=== PATIENT | male | born 1965 | race Caucasian/White ===

== ENCOUNTER → 2017-03-10 | Outpatient (CLI) | payer BC ==
[~2017-03-10] MED LIST: LEVAQUIN500 MG PO; MAGNESIUM OXID400 MG PO; METFORMIN HCL500 MG PO; MINOCYCLINE HCL50 MG PO; MULTI-VITAMIN1 EACH PEG; ULTRAM50 MG PO; VITAMIN D400 UNIT PO
[2017-03-10 12:03] LABS: BASOPHILS % 0.4 % (0.0-1.0); EOSINOPHILS # (AUTO) 0.1 (0.0-0.4); EOSINOPHILS % 1.2 % (0.0-6.0); HEMATOCRIT 38.4 % (38.2-49.6); HEMOGLOBIN 14.3 g/dL (14.0-18.0); LYMPHOCYTES # (AUTO) 1.5 (1.0-3.2); MEAN CORPUSCULAR HEMOGLOBIN 37.1 pg (28-32); MEAN CORPUSCULAR HGB CONC 37.2 g/dL (31-35); MEAN CORPUSCULAR VOLUME 99.7 fL (81-99); MONOCYTES # (AUTO) 0.4 (0.2-0.8); MONOCYTES % 5.3 % (4.4-11.3); NEUTROPHILS % 73.9 % (38.7-80.0); PLATELET COUNT 61 x10e3/uL (140-360); RED BLOOD COUNT 3.85 x10e6/uL (4.3-5.7); RED CELL DISTRIBUTION WIDTH 12.7 % (11.7-14.4)
--- NOTE | 2017-03-10 12:23 | Diagnostic Imaging Report ---
PROCEDURE:CHEST 2 VIEWS TECHNIQUE:PA and lateral chest INDICATION:Cough; congestion COMPARISON:None. FINDINGS: Lungs are clear and symmetrically inflated. No pleural effusions. Normal heart size, mediastinal contour and pulmonary vasculature. Intact skeleton. Upper abdominal embolization coils. Indwelling TIPS CONCLUSION: No acute abnormality. Dictated by: Harinder Jason M.D. on 03/10/2017 at 12:31 Electronically approved by: Harinder Jason M.D. on 03/10/2017 at 12:31
== END ==
LOC: RAD 11:32
PROVIDERS: ATTEND Family Medicine
DX: E11.65 Type 2 diabetes mellitus with hyperglycemia (principal); R05 Cough; E78.2 Mixed hyperlipidemia
CPT/HCPCS: 36415; 71020; 85025

== ENCOUNTER → 2018-12-23 | Outpatient (CLI) | payer BC ==
[2018-12-23 10:05] LABS: BASOPHILS % 0.6 % (0.0-1.0); EOSINOPHILS # (AUTO) 0.1 (0.0-0.4); EOSINOPHILS % 2.1 % (0.0-6.0); HEMATOCRIT 37.3 % (38.2-49.6); HEMOGLOBIN 13.4 g/dL (14.0-18.0); LYMPHOCYTES # (AUTO) 1.3 (1.0-3.2); LYMPHOCYTES % 24.9 % (18.0-39.1); MEAN CORPUSCULAR HEMOGLOBIN 35.3 pg (28-32); MEAN CORPUSCULAR HGB CONC 35.9 g/dL (31-35); MEAN CORPUSCULAR VOLUME 98.2 fL (81-99); MONOCYTES # (AUTO) 0.5 (0.2-0.8); MONOCYTES % 8.7 % (4.4-11.3); NEUTROPHILS # (AUTO) 3.3 (2.1-6.9); NEUTROPHILS % 62.4 % (38.7-80.0); PLATELET COUNT 65 x10e3/uL (140-360); RED CELL DISTRIBUTION WIDTH 12.5 % (11.7-14.4)
[2018-12-23 10:25] LABS: INR 1.08; PROTHROMBIN TIME 14.5 seconds (11.9-14.5)
[2018-12-23 10:35] LABS: ALANINE AMINOTRANSFERASE 20 IU/L (0-55); ALBUMIN 3.5 g/dL (3.5-5.0); ALKALINE PHOSPHATASE 65 IU/L (40-150); ANION GAP 11.3 mmol/L (8-16); BILIRUBIN,DIRECT 0.7 mg/dL (0.0-0.5); BLOOD UREA NITROGEN 9 mg/dL (7-26); BUN/CREATININE RATIO 13 (6-25); CALCIUM 9.7 mg/dL (8.4-10.2); CARBON DIOXIDE 28 mmol/L (22-29); CHLORIDE 106 mmol/L (98-107); CREATININE, SERUM 0.71 mg/dL (0.72-1.25); EST GLOMERULAR FILTRATION RATE > 60 ML/MIN (60-); GLUCOSE 142 mg/dL (74-118); POTASSIUM 4.3 mmol/L (3.5-5.1); SODIUM 141 mmol/L (136-145)
--- NOTE | 2018-12-23 10:47 | Diagnostic Imaging Report ---
EXAM: US ABDOMEN COMPLETE DATE: 12/23/2018 8:51 AM INDICATION: Liver cirrhosis COMPARISON: None TECHNIQUE: Transverse and longitudinal erickson scale and color doppler sonographic images of the upper abdomen were obtained. FINDINGS: There is no evidence of fluid or masses seen in the area of clinical concern in the right lower quadrant. LIVER 12.7 cm in the right midclavicular line. Normal echogenicity of the liver with mildly nodular surface contour. SPLEEN 13.4 cm in maximum diameter. Normal echogenicity, no masses. GALLBLADDER No gallbladder wall thickening, distension, stone, or pericholecystic fluid. NEgative reported sonographic Lindo's sign. Gallbladder wall measures 2 mm BILE DUCTS No intra nor extra-hepatic biliary dilation. Common bile duct measures 4 mm PANCREAS: Visualized portions are normal. RIGHT KIDNEY: 12.5 cm Echogenicity: Normal Collecting System: No hydronephrosis Stones: None Cyst/Mass: None LEFT KIDNEY: 14.8 cm Echogenicity: Normal Collecting System: No hydronephrosis Stones: None Cyst/Mass: None VESSELS: Aorta: Visualized portions are within normal size limits Inferior Vena Cava: Visualized portions are normal Main Portal Vein: 0.8 cm, normal size with hepatopetal flow. FREE FLUID: None IMPRESSION: Mildly nodular liver surface contour can be seen in the setting of cirrhosis. Signed by: Baudilio Pagan MD on 12/23/2018 10:44 AM
== END ==
LOC: US 08:45
PROVIDERS: ATTEND Internal Medicine Hepatology
DX: K74.69 Other cirrhosis of liver (principal)
CPT/HCPCS: 36415; 76700; 80048; 80076; 82105; 85025; 85610

== ENCOUNTER 2021-11-04 14:00 | Emergency (ER) | payer BC, OTHER ==
[~2021-11-04] VITALS: Ht 185.4 cm; Wt 115.7 kg
[2021-11-04 14:51] LABS: BASOPHILS % 0.5 % (0.0-1.0); EOSINOPHILS # (AUTO) 0.1 (0.0-0.4); EOSINOPHILS % 2.2 % (0.0-6.0); HEMATOCRIT 35.8 % (38.2-49.6); HEMOGLOBIN 12.8 g/dL (14.0-18.0); LYMPHOCYTES # (AUTO) 1.1 (1.0-3.2); LYMPHOCYTES % 26.5 % (18.0-39.1); MEAN CORPUSCULAR HEMOGLOBIN 34.7 pg (28-32); MEAN CORPUSCULAR HGB CONC 35.8 g/dL (31-35); MONOCYTES # (AUTO) 0.3 (0.2-0.8); MONOCYTES % 7.9 % (4.4-11.3); NEUTROPHILS # (AUTO) 2.5 (2.1-6.9); NEUTROPHILS % 62.7 % (38.7-80.0); PLATELET COUNT 77 x10e3/uL (140-360); RED BLOOD COUNT 3.69 x10e6/uL (4.3-5.7); RED CELL DISTRIBUTION WIDTH 12.8 % (11.7-14.4)
[2021-11-04 14:59] LABS: INR 0.98; PROTHROMBIN TIME 13.9 seconds (11.9-14.5)
[2021-11-04 15:00] LABS: PARTIAL THROMBOPLASTIN TIME 29.4 seconds (23.8-35.5)
[2021-11-04 15:10] LABS: ALBUMIN 3.5 g/dL (3.5-5.0); ALBUMIN/GLOBULIN RATIO 1.4 (0.8-2.0); ANION GAP 15.9 mmol/L (8-16); CALCIUM 8.4 mg/dL (8.4-10.2); CREATININE, SERUM 0.83 mg/dL (0.72-1.25); POTASSIUM 3.9 mmol/L (3.5-5.1)
[2021-11-04 15:16] LABS: CREATINE KINASE MB 1.6 ng/mL (0-5.0)
[2021-11-04] MEDS ORDERED: HYDRALAZINE HCL 20 MG/ML VIAL IV NR (15:22)
== END 2021-11-04 16:30 | disposition left against medical advice (07) ==
LOC: ER 14:34
DX: R07.89 Other chest pain (principal); E11.65 Type 2 diabetes mellitus with hyperglycemia; I10 Essential (primary) hypertension
CPT/HCPCS: 36415; 71045; 80053; 82550; 82553; 84484; 85025; 85610; 85730; 93005; 99284